=== PATIENT | male | born 1965 | race Caucasian/White ===

== ENCOUNTER 2024-10-26 13:40 | Emergency (ER) | payer OTHER ==
[~2024-10-26] VITALS: Ht 167.6 cm; Wt 61.2 kg
[2024-10-26] MEDS ORDERED: Diphth,Pertuss(Acell),Tet Vac 0.5 ML VIAL IM ONE (17:45)
[2024-10-26] MEDS ORDERED: Ketorolac Tromethamine 10 MG Tab PO ONE (17:45)
== END 2024-10-26 18:20 | disposition home or self-care (01) ==
LOC: ER 13:40
DX: T69.022A Immersion foot, left foot, initial encounter (principal); T69.021A Immersion foot, right foot, initial encounter; X31.XXXA Exposure to excessive natural cold, initial encounter
CPT/HCPCS: 90471; 90715; 99283-25; A9270